=== PATIENT | male | born 1970 | race Caucasian/White ===

== ENCOUNTER 2016-07-19 13:53 | Emergency (ER) | payer SELFPAY ==
[2016-07-19 14:33] VITALS: BP 133/89
--- NOTE | 2016-07-19 17:08 | CR ---
DATE OF SERVICE: 07/19/16 CLINICAL DATA: injury - fell. LEFT FOREARM: There is a longitudinal lucency through the distal radius consistent in appearance with a nondisplaced intra-articular fracture. No other fracture or dislocation. [id number] [facility]
--- NOTE | 2016-07-19 18:47 | ER ---
HISTORY OF PRESENT ILLNESS: A 45-year-old male here with complaints of falling at a friend's house earlier today injuring his left forearm. He was going down a flight of steps carrying something. There were no boards on the last 2 steps and he stepped down suddenly to the floor. He fell forward and tried to catch himself with his left arm. The pain seems to be involving the distal forearm area. The patient denies any bleeding. He did not sustain any other injury. He states it hurts significantly when he tries to use his arm to the point where he knew he needed to come in for evaluation. OBJECTIVE: GENERAL APPEARANCE: The patient is awake and alert. He is holding his left arm across his abdomen in a guarded fashion. VITAL SIGNS: Reviewed as listed. They are normal. PHYSICAL EXAM: Examining the left forearm reveals mild swelling over the distal forearm area. Skin is intact. The patient has pain with rotation of the forearm and significant guarding with this activity done passively. He can flex and extend the wrist fairly well in a slightly guarded fashion. There is no pain with palpation of the elbow. LAB AND X-RAY: X-rays were obtained. I can see a vertical fracture line involving the distal radius. There is intra-articular involvement without any displacement, and it does not reach the surface of the radius on the proximal end. DIAGNOSIS: Distal radial fracture. TREATMENT PLAN: A gutter splint was applied and held in place with Victorino wraps. This in turn was put into a sling. The patient is to keep the arm elevated as much as possible for the next couple of days. He is to use a sling most of the time. RICE therapy was discussed in detail. The patient will be given [place] tablets to take 1 tablet every six hours as needed for pain giving 12 tablets. He is to call the clinic and get scheduled for a recheck early next week, Friday or Friday; and possible casting. The radiologist report will be available by that time as well. The patient has no further questions. I gave him a slip to be off work through next Friday. He works as a cook. ROULA/MODL /[id number]
== END 2016-07-19 15:00 | disposition home or self-care (01) ==
LOC: LB.ED 13:53
DX: S52.572A Other intraarticular fracture of lower end of left radius, initial encounter for closed fracture (principal); W10.8XXA Fall (on) (from) other stairs and steps, initial encounter
CPT/HCPCS: 29125; 73090-LT; 99283

== ENCOUNTER 2017-05-24 12:22 | Emergency (ER) | payer OTHER ==
[2017-05-24 12:33] VITALS: BP 138/75
--- NOTE | 2017-05-24 12:44 | EDM.PDOC ---
ED HPI GENERAL MEDICAL PROBLEM - General Chief Complaint: General Stated Complaint: knee injury Time Seen by Provider: 05/24/17 12:25 Source of Information: Reports: Patient History Limitations: Reports: No Limitations - History of Present Illness INITIAL COMMENTS - FREE TEXT/NARRATIVE: According to patient he was at work last night.His injury happened around 8 PM yesterday. He was standing next to some greasy oil on the floor and his left foot slipped and his foot got stuck under the counter and fell backwards with his knee in extension and felt severe pain in the back of his left knee. Pt has been weight bearing, but using crutches and has Victorino wrap around the knee. He claims his knee was swollen, hurts in the back of the knee. No other injuries. Onset Date: 05/23/17 Onset Time: 20:00 Location: Reports: Lower Extremity, Left Quality: Reports: Ache Severity: Moderate Improves with: Reports: Immobilization, Rest Worsens with: Reports: Movement Associated Symptoms: Denies: Confusion, Chest Pain, Cough, Fever/Chills, Headaches, Nausea/Vomiting, Rash, Seizure, Shortness of Breath, Syncope, Weakness - Related Data Allergies Allergy/AdvReac Type Severity Reaction Status Date / Time No Known Allergies Allergy Verified 05/21/15 11:04 Home Meds: Home Meds NK [No Known Home Meds] 05/24/17 [History] Past Medical History - Past Health History Medical/Surgical History: Denies Medical/Surgical History Gastrointestinal History: Reports: GERD - Infectious Disease History Infectious Disease History: Reports: Chicken Pox - Past Surgical History Head Surgeries/Procedures: Reports: None Social & Family History - Family History Family Medical History: Noncontributory Cardiac: Reports: Hypertension Endocrine/Metabolic: Reports: Diabetes, type II - Tobacco Use Smoking Status *Q: Current Every Day Smoker Years of Tobacco use: 23 Packs/Tins Daily: 0.5 Used Tobacco, but Quit: No Second Hand Smoke Exposure: Yes - Caffeine Use Caffeine Use: Reports: Coffee, Soda - Alcohol Use Days Per Week of Alcohol Use: 7 Number of Drinks Per Day: 2 Total Drinks Per Week: 14 - Recreational Drug Use Recreational Drug Use: No Drug Use in Last 12 Months: Yes Recreational Drug Type: Reports: Marijuana/Hashish Recreational Drug Use Frequency: Daily Recreational Drug Last Use: 05-20-15 ED ROS GENERAL - Review of Systems Review Of Systems: See Below Constitutional: Denies: Fever, Chills HEENT: Denies: Rhinitis, Sinus Problem Respiratory: Denies: Cough, Sputum Cardiovascular: Denies: Chest Pain, Lightheadedness GI/Abdominal: Denies: Nausea, Vomiting : Denies: Flank Pain Musculoskeletal: Denies: Shoulder Pain, Back Pain Skin: Denies: Bruising, Pruritis, Rash ED EXAM, GENERAL - Physical Exam Exam: See Below Exam Limited By: No Limitations General Appearance: Alert, WD/WN, No Apparent Distress Eye Exam: Bilateral Eye: EOMI, PERRL Ears: Normal External Exam, Normal Canal, Hearing Grossly Normal, Normal TMs Ear Exam: Bilateral Ear: TM normal Nose: Normal Inspection, Normal Mucosa, No Blood Throat/Mouth: Normal Inspection Head: Atraumatic, Normocephalic Respiratory/Chest: No Respiratory Distress Cardiovascular: Normal Peripheral Pulses, Regular Rate, Rhythm, No Edema, No Gallop, No JVD, No Murmur, No Rub Extremities: Normal Inspection, Normal Range of Motion, Non-Tender, No Pedal Edema, Normal Capillary Refill, Other (left knee: The victorino wrap was removed. There is no swelling around the knee or any deformity seen. He does have normal Active ROm and PROM. Mild patellar tenderness. Tender over the psoterior aspect fo the knee over the insertion of the hamstring, but no brusing seen. He is able to weight bear on the left lower extremity.) Course - Vital Signs Text/Narrative:: Pt's Knee Xray appears normal. Pt reassured that he does not have fracture or dislocation. He was able to walk and weight bear on the limb. Advised ibuprofen 800mg 3 times daily. Cold compresses 3-4 times daily. I have taken him off work today and tomorrow as he stand and twists his knees a lot at work. Should be okay to return on friday. If pain worsen or swelling develops advised to followup in clinic. Last Recorded V/S: Last Vital Signs Temp 98.1 F 05/24/17 12:49 Pulse 89 05/24/17 12:49 Resp 12 05/24/17 12:49 BP 138/75 05/24/17 12:49 Pulse Ox 96 05/24/17 12:49 - Orders/Labs/Meds Orders: Active Orders 24 hr Category Date Time Status Knee 1V or 2V Lt [CR] Stat Exams 05/24/17 12:38 Taken Departure - Departure Time of Disposition: 13:00 Disposition: Home, Self-Care 01 Condition: Good Clinical Impression: Left knee pain - Discharge Information Referrals: PCP,None [Primary Care Provider] - Forms: ED Department Discharge Additional Instructions: Use Motrin 800mg three times a day as needed for pain. Also, apply an ice pack to painful area 3 to 4 times a day for 20 minutes at a time. Continue to walk and bear weight on the left leg to avoid muscle tightness and stiffness. Do not work today 05/24/17 or tomorrow 05/25/17, but make sure to be up and walking around at home. Follow up in clinic this week with primary care provider if symptoms worsen or persist. - Problem List & Annotations (1) Left knee pain SNOMED Code(s): 53647939 Code(s): M25.562 - PAIN IN LEFT KNEE Status: Acute - Problem List Review Problem List Initiated/Reviewed/Updated: Yes - My Orders Last 24 Hours: My Active Orders 05/24/17 12:38 Knee 1V or 2V Lt [CR] Stat - Assessment/Plan Last 24 Hours: My Active Orders 05/24/17 12:38 Knee 1V or 2V Lt [CR] Stat Assessment:: Left knee pain Plan: Pt's Knee Xray appears normal. Pt reassured that he does not have fracture or dislocation. He was able to walk and weight bear on the limb. Advised ibuprofen 800mg 3 times daily. Cold compresses 3-4 times daily. I have taken him off work today and tomorrow as he stand and twists his knees a lot at work. Should be okay to return on friday. If pain worsen or swelling develops advised to followup in clinic.
--- NOTE | 2017-05-25 19:47 | CR ---
DATE OF SERVICE: 05/24/2017 CLINICAL DATA: Knee injury. LEFT KNEE: No acute fracture or dislocation. No lytic or blastic bone lesions. There is a moderate size joint effusion. If the patient's symptoms persist, an MRI scan should be considered. [id number] [facility]
== END 2017-05-24 13:22 | disposition home or self-care (01) ==
LOC: LB.ED 12:22
DX: M25.562 Pain in left knee (principal); F17.210 Nicotine dependence, cigarettes, uncomplicated; W01.0XXA Fall on same level from slipping, tripping and stumbling without subsequent striking against object, initial encounter; Y99.0 Civilian activity done for income or pay
CPT/HCPCS: 73560-LT; 99283

== ENCOUNTER 2019-02-20 11:48 | Emergency (ER) | payer OTHER ==
[2019-02-20] MEDS ORDERED: Cyclobenzaprine 10 MG Tab ONE (12:00)
[2019-02-20] MEDS ORDERED: traMADol 50 MG Tab ONE (12:00)
--- NOTE | 2019-02-20 13:34 | ER ---
HPI: A 48-year-old male here with complaints of injuring his low back by pulling muscles. He was shoveling snow a few days ago, and then after this, he was helping his friend to get an older snowmobile started and he pulled on this starting cord many times, telling me at least a 100 times. The patient felt a slight tightness in his low back, and over the course of the next few hours, it got worse. The patient did try going to work yesterday, and he did okay during the day at times, other times it was quite painful. He has been using ibuprofen and he states he did not get much sleep last night due to pain. The area of discomfort is in the low back, mostly on the left side. The patient denies any falls or injuries. OBJECTIVE: GENERAL APPEARANCE: The patient is awake and alert. No obvious distress. He rates his pain at 7/10 or 8/10. Physical exam, examining the low back, reveals the patient is able to change positions in a very guarded fashion. Examining the lower back reveals mild swelling of the paraspinal muscles on the left side of the lumbar spine down to the SI joint on the left side. This is the area that is tender. The skin is intact without any bruising or discoloration. DIAGNOSIS: Low back strain. TREATMENT PLAN: The patient will be sent home with Flexeril 10 mg t.i.d. We will give him Ultram as well 1 tablet every 6 hours as needed. He has ibuprofen at home. He is to continue using this. The patient is given a slip to be off work today and tomorrow. He is to use ice packs fairly frequently. By tomorrow, he can start alternating with heat and slowly increase activity next week as tolerated. Followup is p.r.nEdis CELESTE/ANGELIA /[id number]
[2019-02-20 17:00] VITALS: BP 138/89; PULSE 88
== END 2019-02-20 12:15 | disposition home or self-care (01) ==
LOC: LB.ED 11:48
DX: S39.012A Strain of muscle, fascia and tendon of lower back, initial encounter (principal); X58.XXXA Exposure to other specified factors, initial encounter; Y93.89 Activity, other specified
CPT/HCPCS: 99283; A9270-GY

== ENCOUNTER 2020-03-11 09:41 | Emergency (ER) | payer OTHER ==
[2020-03-11 10:02] VITALS: BP 149/89; PULSE 89
[2020-03-11] MEDS ORDERED: Ketorolac 60 MG/2 ML SDV IM ONE (10:11)
[2020-03-11] MEDS ORDERED: Ketorolac 60 MG/2 ML SDV ONE (10:23)
[2020-03-11] MEDS ORDERED: Naproxen 500 MG Tab ONE ×2 (11:01→11:10)
[2020-03-11] MEDS ORDERED: Baclofen 10 MG Tab ONE (11:10)
--- NOTE | 2020-03-11 11:31 | EDM.PDOC ---
ED HPI GENERAL MEDICAL PROBLEM - General Chief Complaint: Back Pain or Injury Stated Complaint: BACK PAIN Time Seen by Provider: 03/11/20 10:45 Source of Information: Reports: Patient History Limitations: Reports: No Limitations - History of Present Illness INITIAL COMMENTS - FREE TEXT/NARRATIVE: Patient is a 49 y/o male who presents for left lower back pain x 1 weeks after twisting wrong at work. He has been using cold compresses without much help. No urinary/bowel incontinences. No numbness/tingling. Left Lower Back Pain Score (Numeric/FACES): 3 - Related Data Allergies Allergy/AdvReac Type Severity Reaction Status Date / Time No Known Allergies Allergy Verified 03/11/20 10:03 Home Meds: Home Meds NK [No Known Home Meds] 05/24/17 [History] Past Medical History - Past Health History Medical/Surgical History: Denies Medical/Surgical History Gastrointestinal History: Reports: GERD Musculoskeletal History: Reports: Other (See Below) Other Musculoskeletal History: hx of same type of back injury in the past - Infectious Disease History Infectious Disease History: Reports: Chicken Pox - Past Surgical History Head Surgeries/Procedures: Reports: None Musculoskeletal Surgical History: Reports: Arthroscopic Knee Social & Family History - Family History Family Medical History: No Pertinent Family History Cardiac: Reports: Hypertension Endocrine/Metabolic: Reports: Diabetes, type II - Tobacco Use Years of Tobacco use: 25 Packs/Tins Daily: 0.5 - Caffeine Use Caffeine Use: Reports: Coffee, Soda - Alcohol Use Days Per Week of Alcohol Use: 7 Number of Drinks Per Day: 2 Total Drinks Per Week: 14 - Recreational Drug Use Recreational Drug Use: No ED ROS GENERAL - Review of Systems Review Of Systems: See Below Constitutional: Reports: No Symptoms Musculoskeletal: Reports: Back Pain, Muscle Stiffness Skin: Reports: No Symptoms Neurological: Reports: No Symptoms ED EXAM,LOWER BACK PAIN/INJURY - Physical Exam Exam: See Below Exam Limited By: No Limitations General Appearance: Alert, No Apparent Distress Head: Atraumatic, Normocephalic Respiratory/Chest: No Respiratory Distress Back Exam: Normal Inspection, Full Range of Motion, Muscle Spasm, Other (left lower back muscular tenderness on exam; (+) muscular spasms) Neurological: Alert, Normal Mood/Affect Skin Exam: Warm, Dry, Intact, Normal Color, No Rash Course - Vital Signs Text/Narrative:: toradol 60 mg IM given with relief. Will give scripts for baclofen and diclofenac. Follow up with PCP as needed. No lifting more thank 15 pounds x 10 days. Stretching and warm compresses. low impact exercise. Last Recorded V/S: Last Vital Signs Temp 36.4 C 03/11/20 09:57 Pulse 89 03/11/20 09:57 Resp 14 03/11/20 09:57 BP 149/89 H 03/11/20 09:57 Pulse Ox 99 03/11/20 09:57 - Orders/Labs/Meds Meds: Medications Discontinued Medications Generic Name Dose Route Start Last Admin Trade Name Andreia PRN Reason Stop Dose Admin Ketorolac Tromethamine 60 mg 03/11/20 10:11 03/11/20 10:17 Toradol IM 03/11/20 10:12 60 mg ONETIME ONE Administration Ketorolac Tromethamine Confirm 03/11/20 10:23 03/11/20 10:18 Toradol Administered 03/11/20 10:24 Not Given Dose 60 mg .ROUTE .STK-MED ONE Naproxen Confirm 03/11/20 11:01 03/11/20 11:16 Naprosyn Administered 03/11/20 11:02 Not Given Dose 1,000 mg .ROUTE .STK-MED ONE Departure - Departure Time of Disposition: 11:20 Disposition: Home, Self-Care 01 Condition: Good Clinical Impression: Lower back pain Qualifiers: Chronicity: acute Back pain laterality: left Sciatica presence: without sciatica Qualified Code(s): M54.5 - Low back pain - Discharge Information *PRESCRIPTION DRUG MONITORING PROGRAM REVIEWED*: Not Applicable *COPY OF PRESCRIPTION DRUG MONITORING REPORT IN PATIENT RADHA: Not Applicable Instructions: Acute Back Pain, Adult Referrals: PCP,None [Primary Care Provider] - Forms: ED Department Discharge Care Plan Goals: take Baclofen and naproxen as directed for muscle spasms. apply heat as needed no ice. prescription for diclofenac to fill on Friday. Sepsis Event Note (ED) - Evaluation Sepsis Screening Result: No Definite Risk - Focused Exam Vital Signs: Vital Signs Temp Pulse Resp BP Pulse Ox 03/11/20 09:57 36.4 C 89 14 149/89 H 99
== END 2020-03-11 11:17 | disposition home or self-care (01) ==
LOC: LB.ED 09:41
DX: M54.5 Low back pain (principal); F17.210 Nicotine dependence, cigarettes, uncomplicated
CPT/HCPCS: 96372; 99283; A9270-GY; J1885

== ENCOUNTER 2021-05-20 06:50 | Emergency (ER) | payer BC, OTHER ==
[2021-05-20] MEDS ORDERED: Orphenadrine 60 MG/2 ML Inj IM ONE (07:04)
[2021-05-20] MEDS ORDERED: Ketorolac 30 MG/ML SDV IM ONE (07:07)
[2021-05-20] MEDS ORDERED: Cyclobenzaprine 10 MG Tab ONE (08:00)
[2021-05-20] MEDS ORDERED: traMADol 50 MG Tab ONE ×2 (08:00→08:12)
[2021-05-20] MEDS ORDERED: traMADol 50 MG Tab PO ONE (08:02)
== END 2021-05-20 08:17 | disposition home or self-care (01) ==
LOC: LB.ED 06:50
DX: M54.42 Lumbago with sciatica, left side (principal); K21.9 Gastro-esophageal reflux disease without esophagitis
CPT/HCPCS: 96372; 99283; A9270-GY; J1885; J2360

== ENCOUNTER 2021-10-18 08:26 | Emergency (ER) | payer BC ==
[2021-10-18 08:53] VITALS: BP 129/86; PULSE 79
== END 2021-10-18 09:02 | disposition home or self-care (01) ==
LOC: LB.ED 08:26
DX: K08.89 Other specified disorders of teeth and supporting structures (principal)
CPT/HCPCS: 99281; 99282

== ENCOUNTER 2022-09-03 09:39 | Emergency (ER) | payer BC ==
[2022-09-03 09:53] VITALS: BP 151/96; PULSE 89
[2022-09-03] MEDS ORDERED: HYDROmorphone 2 MG/ML Syringe ONE (09:55)
[2022-09-03] MEDS ORDERED: Ketorolac 60 MG/2 ML SDV ONE (09:55)
[2022-09-03] MEDS ORDERED: HYDROmorphone 2 MG/ML Syringe IM ONE (10:21)
[2022-09-03] MEDS ORDERED: Ketorolac 60 MG/2 ML SDV IM ONE (10:21)
== END 2022-09-03 10:20 | disposition home or self-care (01) ==
LOC: LB.ED 09:39
DX: M54.50 Low back pain, unspecified (principal)
CPT/HCPCS: 96372; 99283; J1170; J1885

== ENCOUNTER 2023-11-12 13:02 | Emergency (ER) | payer BC ==
[2023-11-12] MEDS: Cyclobenzaprine 10 MG Tab PO ONE (13:26)
[2023-11-12] MEDS: Diazepam 5 MG Tab PO ONE (13:26)
[2023-11-12] MEDS: Ketorolac 30 MG/ML SDV IM ONE (13:26)
[2023-11-12 16:14] VITALS: BP 132/84; PULSE 65
== END 2023-11-12 16:00 | disposition home or self-care (01) ==
LOC: LB.ED 13:02
DX: M54.42 Lumbago with sciatica, left side (principal); F17.210 Nicotine dependence, cigarettes, uncomplicated; Z79.899 Other long term (current) drug therapy
CPT/HCPCS: 72131; 96372; 99283; A9270-GY; J1885

== ENCOUNTER 2024-04-26 16:37 | Emergency (ER) | payer BC ==
[2024-04-26] MEDS: Ketorolac 30 MG/ML SDV IM ONE (17:07)
[2024-04-26 17:13] VITALS: BP 127/82; PULSE 93
[2024-04-26] MEDS: Cyclobenzaprine 10 MG Tab PO ONE (17:37)
== END 2024-04-26 17:40 | disposition home or self-care (01) ==
LOC: LB.ED 16:37
DX: S39.012A Strain of muscle, fascia and tendon of lower back, initial encounter (principal); Z79.899 Other long term (current) drug therapy; W00.9XXA Unspecified fall due to ice and snow, initial encounter; Y93.89 Activity, other specified
CPT/HCPCS: 96372; 99283; A9270-GY; J1885

== ENCOUNTER 2024-06-30 12:31 | Emergency (ER) | payer OTHER, BC ==
[2024-06-30 13:05] VITALS: BP 143/84; PULSE 78
== END 2024-06-30 13:15 | disposition home or self-care (01) ==
LOC: LB.ED 12:31
DX: S60.022A Contusion of left index finger without damage to nail, initial encounter (principal); F17.210 Nicotine dependence, cigarettes, uncomplicated; Z79.899 Other long term (current) drug therapy; W22.8XXA Striking against or struck by other objects, initial encounter; Y93.89 Activity, other specified
CPT/HCPCS: 29125; 73140-F1; 99282; 99283

== ENCOUNTER 2025-01-13 10:12 | Emergency (ER) | payer BC, OTHER ==
[2025-01-13 11:28] VITALS: BP 122/69; PULSE 86
== END 2025-01-13 11:17 | disposition home or self-care (01) ==
LOC: LB.ED 10:12
DX: S63.502A Unspecified sprain of left wrist, initial encounter (principal); E66.9 Obesity, unspecified; F17.200 Nicotine dependence, unspecified, uncomplicated; Z79.899 Other long term (current) drug therapy; Z68.29 Body mass index [BMI] 29.0-29.9, adult; W01.0XXA Fall on same level from slipping, tripping and stumbling without subsequent striking against object, initial encounter
CPT/HCPCS: 73110-LT; 73130-LT; 99283